=== PATIENT | male | born 1940 | race Caucasian/White ===

== ENCOUNTER 2017-01-26 19:38 | Inpatient (IN) | payer MEDICARE ==
[~2017-01-26] VITALS: Ht 177.8 cm; Wt 76.5 kg
[2017-01-26 19:44] VITALS: BP 179/79; PULSE 71; RESP 16; TEMP 97.8; O2SAT 16; O2SAT 96
[2017-01-26] MEDS ORDERED: TETANUS/DIPHTHERIA TOXOID ADULT 0.5 ML VIAL IM ONE (20:15)
[2017-01-26] MEDS ORDERED: LIDOCAINE HCL 1% PF 30 ML VIAL INFIL ONE (20:15)
[2017-01-26] MEDS ORDERED: ATEN50TA PO (20:20)
[2017-01-26] MEDS ORDERED: TAMS0.4C4 PO (20:20)
[2017-01-26] MEDS ORDERED: HYDR25TA5 PO (20:20)
[2017-01-26] MEDS ORDERED: ASPI81TA23 PO (20:20)
--- NOTE | 2017-01-26 20:20 | PD ---
HPI Chief Complaint: Skin Problem Time Seen by Provider: 20:12 Travel History International Travel<30 days: No Contact w/Intl Traveler<30days: No Traveled to known affect area: No History of Present Illness HPI 76-year-old male presents to the emergency department for complaint of medial left knee injury/pain. According the patient around 1 PM this afternoon while working in his yard he accidentally knelt down on the ground and sustained a puncture wound to the medial aspect of his left knee from a Ran planned. Patient states that he attempted to remove the thorn from his knee area on his own and thinks he removed the thorn intact but is not certain. Since that time the area has been sore. Patient went to urgent care and they became concerned that he may have a septic joint so sent him to the emergency room for further evaluation. Patient does take low-dose aspirin daily but takes no other blood thinning agents. Patient does not know his tetanus status. Patient denies other injury. Patient has not noticed any swelling, increased warmth, or redness of the knee. Patient however rates his knee pain to palpation or movement 9-10/10 in intensity. PFSH Past Medical History Hx Anticoagulant Therapy: Yes Cancer: Yes (LUNG 1993) Cardiovascular Problems: Yes Patient Takes Glucophage: No Genitourinary: Yes (BPH) Hypertension: Yes Respiratory: Yes Tetanus Vaccination: Unknown Influenza Vaccination: Yes ?: Not Past Surgical History Thoracic Surgery: Yes (BILATERAL UPPER LOBECTOMY) Social History Alcohol Use: No Tobacco Use: No Substance Use: No Allergies-Medications (Allergen,Severity, Reaction): Coded Allergies: lisinopril (Verified Allergy, Unknown, Anaphylaxis, 01/26/17) Reported Meds & Prescriptions Reported Meds & Active Scripts Active Reported Aspirin EC (Aspirin) 81 Mg Tabdr 81 Mg PO DAILY Tamsulosin (Tamsulosin HCl) 0.4 Mg Cap 0.4 Mg PO BLAS Hydrochlorothiazide 25 Mg Tab 25 Mg PO DAILY Atenolol 50 Mg Tab 50 Mg PO DAILY Review of Systems Except as stated in HPI: all other systems reviewed are Neg General / Constitutional: No: Fever, Chills Physical Exam Narrative GENERAL: Well developed well nourished male in no acute distress SKIN: Warm and dry. HEAD: Normocephalic. EYES: No scleral icterus. No injection or drainage. NECK: Supple, trachea midline. No JVD or lymphadenopathy. CARDIOVASCULAR: Regular rate and rhythm without murmurs, gallops, or rubs. RESPIRATORY: Breath sounds equal bilaterally. No accessory muscle use. GASTROINTESTINAL: Abdomen soft, non-tender, nondistended. MUSCULOSKELETAL: No cyanosis, or edema. Attention left knee medial inferior aspect subcentimeter puncture wound site tender to palpation with palpable rough potential FB BACK: Nontender without obvious deformity. No CVA tenderness. Data Data Last Documented VS Vital Signs Date Time Temp Pulse Resp B/P (MAP) Pulse Ox O2 Delivery O2 Flow Rate FiO2 01/26/17 23:14 68 14 159/64 (95) 97 Room Air 01/26/17 19:44 97.8 Orders Orders Basic Metabolic Panel (Bmp) (01/26/17 20:12) Complete Blood Count With Diff (01/26/17 20:12) Blood Culture (01/26/17 20:12) Iv Access Insert/Monitor (01/26/17 20:12) Lactic Acid (01/26/17 20:12) NPO (01/26/17 20:12) Lidocaine Pf 1% Inj (Xylocaine-Mpf 1% In (01/26/17 20:15) Knee, Complete (4vws) (01/26/17 ) Tetanus/Diphtheria Tox Adult (Tetanus/Di (01/26/17 20:15) Westergren Sedimentation Rate (01/26/17 20:25) Ketorolac Inj (Toradol Inj) (01/26/17 22:30) Morphine Inj (Morphine Inj) (01/26/17 22:30) Ondansetron Inj (Zofran Inj) (01/26/17 22:30) Prothrombin Time / Inr (Pt) (01/26/17 22:28) Act Partial Throm Time (Ptt) (01/26/17 22:28) Synovial Fl Cell Count + Diff (01/26/17 23:27) Synovial Fluid Crystals (01/26/17 23:27) Synovial Fluid Glucose (01/26/17 23:27) Synovial Fluid Total Protein (01/26/17 23:27) Fluid Culture And Gram Stain (01/26/17 23:27) Clindamycin 900 Mg Premix (Cleocin 900 M (01/26/17 23:45) Ceftazidime Inj (Fortaz Inj) (01/27/17 00:00) Labs Laboratory Tests Test 01/26/17 20:55 White Blood Count 7.0 TH/MM3 Red Blood Count 4.11 MIL/MM3 Hemoglobin 13.1 GM/DL Hematocrit 38.6 % Mean Corpuscular Volume 93.8 FL Mean Corpuscular Hemoglobin 31.8 PG Mean Corpuscular Hemoglobin Concent 33.9 % Red Cell Distribution Width 12.1 % Platelet Count 163 TH/MM3 Mean Platelet Volume 8.5 FL Neutrophils (%) (Auto) 86.7 % Lymphocytes (%) (Auto) 6.1 % Monocytes (%) (Auto) 5.6 % Eosinophils (%) (Auto) 1.2 % Basophils (%) (Auto) 0.4 % Neutrophils # (Auto) 6.1 TH/MM3 Lymphocytes # (Auto) 0.4 TH/MM3 Monocytes # (Auto) 0.4 TH/MM3 Eosinophils # (Auto) 0.1 TH/MM3 Basophils # (Auto) 0.0 TH/MM3 CBC Comment DIFF FINAL Differential Comment Erythrocyte Sedimentation Rate 15 mm/hr Prothrombin Time 11.4 SEC Prothromb Time International Ratio 1.0 RATIO Activated Partial Thromboplast Time 26.0 SEC Blood Urea Nitrogen 18 MG/DL Creatinine 1.10 MG/DL Random Glucose 100 MG/DL Calcium Level 8.5 MG/DL Sodium Level 134 MEQ/L Potassium Level 3.6 MEQ/L Chloride Level 98 MEQ/L Carbon Dioxide Level 26.1 MEQ/L Anion Gap 10 MEQ/L Estimat Glomerular Filtration Rate 65 ML/MIN Lactic Acid Level 0.9 mmol/L MDM Medical Decision Making Medical Screen Exam Complete: Yes Emergency Medical Condition: Yes Medical Record Reviewed: Yes Interpretation(s) Last Impressions Knee X-Ray 01/26/17 0000 Signed Impressions: Service Date/Time: January 20:38 - CONCLUSION: 1. Mild effusion. 2. Chondrocalcinosis. 3. No foreign body is seen. Suman Serrano MD Vital Signs Date Time Temp Pulse Resp B/P (MAP) Pulse Ox O2 Delivery O2 Flow Rate FiO2 01/26/17 19:44 97.8 71 16 179/79 (112 96 Differential Diagnosis Puncture wound, retained foreign body, effusion, septic arthritis Narrative Course IV access obtained, imaging studies ordered Review of imaging study reveals no radiopaque foreign body. Radiologist foreign body identified small effusion at medial inferior aspect of the left knee there is a puncture wound with what appears to be a rough area as a possible retained foreign body after site cleansed locally anesthetic 1% lidocaine plain injected and small incision made to see if possible removal of superficial retained thorn able to be removed. No acute bony abnormality. By imaging study there is an effusion. Physician Communication Physician Communication discussed with orthopedist Dr Lopez--admit to [facility] service for knee irrigation in the AM; discussed with Dr Mora --admit Diagnosis Primary Impression: Puncture wound of left knee Qualified Codes: S81.032A - Puncture wound without foreign body, left knee, initial encounter Additional Impressions: Effusion of knee joint, left Septic arthritis of knee, left Qualified Codes: M00.9 - Pyogenic arthritis, unspecified Admitting Information Admitting Physician Requests: Evelina Avalos MD Jan 26, 2017 20:20
--- NOTE | 2017-01-26 21:04 | RADRPT ---
EXAM DATE/TIME: 01/26/2017 20:38 [facility] COMPARISON: No previous studies available for comparison. INDICATIONS : Left knee pain; puncture from thorn. MEDICAL HISTORY : Hypertension. Carcinoma, lung. SURGICAL HISTORY : None. ENCOUNTER: Initial ACUITY: 1 day PAIN SCORE: 10/10 LOCATION: Left medial anterior knee FINDINGS: No fracture is seen. There is a mild joint effusion. There is chondrocalcinosis seen at the medial an d lateral joint compartments. Vascular calcifications are seen. No foreign body is seen. CONCLUSION: 1. Mild effusion. 2. Chondrocalcinosis. 3. No foreign body is seen. Suman Serrano MD on January 26, 2017 at 21:01 Board Certified Radiologist. This report was verified electronically.
[2017-01-26 21:11] LABS: AUTOMATED NEUTROPHIL # 6.1 TH/MM3 (1.8-7.7); BASOPHIL % 0.4 % (0.0-2.0); EOSINOPHIL # 0.1 TH/MM3 (0-0.4); EOSINOPHIL % 1.2 % (0.0-4.0); HEMATOCRIT 38.6 % (39.0-51.0); HEMO FLAGS DIFF FINAL; LYMPH % 6.1 % (9.0-44.0); LYMPHOCYTE # 0.4 TH/MM3 (1.0-4.8); MEAN CELL VOLUME 93.8 FL (80.0-100.0); MEAN CORPUSCULAR HEMOGLOBIN 31.8 PG (27.0-34.0); MEAN CORPUSCULAR HGB CONC 33.9 % (32.0-36.0); MONO % 5.6 % (0.0-8.0); NEUT % 86.7 % (16.0-70.0); PLATELET COUNT 163 TH/MM3 (150-450); RED BLOOD COUNT 4.11 MIL/MM3 (4.50-5.90); RED CELL DISTRIBUTION WIDTH 12.1 % (11.6-17.2)
[2017-01-26 21:22] LABS: POTASSIUM 3.6 MEQ/L (3.5-5.1)
[2017-01-26 21:25] LABS: BICARBONATE 26.1 MEQ/L (21.0-32.0)
[2017-01-26] MEDS ORDERED: MORPHINE SULFATE 4 MG/ML INJ IV PUSH ONE (22:30)
[2017-01-26] MEDS ORDERED: ONDANSETRON HCL 4 MG/2 ML VIAL IV PUSH ONE (22:30)
[2017-01-26] MEDS ORDERED: KETOROLAC TROMETHAMINE 30 MG/ML (IVP) VIAL IV PUSH ONE (22:30)
[2017-01-26 23:14] VITALS: BP 159/64; PULSE 68; RESP 14; O2SAT 97
[2017-01-26 23:41] LABS: PROTHROMBIN TIME - PATIENT 11.4 SEC (9.8-11.6)
[2017-01-26] MEDS ORDERED: CLINDAMYCIN 900 MG PREMIX 50 ML IV ONE (23:45)
[2017-01-27] MEDS ORDERED: cefTAZidime INJ 1,000 MG in SODIUM CHLORIDE 0.9% INJ 100 ML IV ONE ×2
[2017-01-27] MEDS ORDERED: ONDANSETRON HCL 4 MG/2 ML VIAL IVP PRN (00:15)
[2017-01-27] MEDS ORDERED: SODIUM CHLORIDE 0.9% FLUSH 10 ML FLUSH IV FLUSH PRN (00:15)
[2017-01-27] MEDS ORDERED: SENNOSIDES 8.6 MG TAB PO PRN (00:15)
[2017-01-27] MEDS ORDERED: LACTULOSE SYRUP 20 GM/30 ML CUP PO PRN (00:15)
[2017-01-27] MEDS ORDERED: ACETAMINOPHEN 325 MG TAB PO PRN (00:15)
[2017-01-27] MEDS ORDERED: ACETAMINOPHEN/HYDROcodone 325 MG/5 MG TAB PO PRN (00:15)
[2017-01-27] MEDS ORDERED: MAGNESIUM HYDROXIDE SUSP 30 ML CUP PO PRN (00:15)
[2017-01-27] MEDS ORDERED: BISACODYL 10 MG SUPP RECTAL PRN (00:15)
[2017-01-27] MEDS: SODIUM CHLOR 0.9% 1000 ML INJ 1,000 ML IV SCH ×2 (00:31→09:36)
[2017-01-27] MEDS ORDERED: MORPHINE SULFATE 2 MG/ML INJ IV PRN (00:45)
[2017-01-27 01:08] LABS: WBC, SYNOVIAL FLUID 32900 /MM3 (0-200)
[2017-01-27 02:29] VITALS: BP 135/67; PULSE 65; RESP 14; O2SAT 97
[2017-01-27 06:03] VITALS: BP 162/73; PULSE 72; RESP 18; TEMP 97.4; O2SAT 97
--- NOTE | 2017-01-27 06:52 | PD.ORT.PN ---
Subjective Subjective Remarks Fercho was working in the yard yesterday and got stuck by a thorn on his anterior left knee. Patient had significant pain and swelling yesterday. He states that the pain has mostly resolved. Swelling has improved. Objective Vitals Vital Signs Date Time Temp Pulse Resp B/P (MAP) Pulse Ox O2 Delivery O2 Flow Rate FiO2 01/27/17 06:03 97.4 72 18 162/73 (102) 97 01/27/17 02:40 01/27/17 02:29 65 14 135/67 (89) 97 Room Air 01/27/17 00:32 15 01/27/17 00:32 15 01/26/17 23:14 68 14 159/64 (95) 97 Room Air 01/26/17 19:44 97.8 71 16 179/79 (112) 96 I/O 01/26/17 01/26/17 01/26/17 01/27/17 01/27/17 01/27/17 07:00 15:00 23:00 07:00 15:00 23:00 Intake Total 384 ml Balance 384 ml Intake IV Total 384 ml Result Diagram: 01/26/17205401/26/172054 Other Results Laboratory Tests Test 01/26/17 20:55 Prothromb Time International Ratio 1.0 RATIO Prothrombin Time 11.4 SEC (9.8-11.6) Objective Remarks Patient is awake and alert. Examination of left knee reveals no warmth or erythema. There is small joint effusion. Knee range of motion is from 0-130 with minimal pain. Skin is intact except for small puncture wound from a thorn and needle aspiration. Assessment & Plan Assessment and Plan Patient's pain has mostly resolved today. Patient did have needle aspiration of knee yesterday. Resume diet today NPO after midnight--possible surgery tomorrow if cultures are positive We'll await culture results tomorrow to see if patient has infection. Gus Velasco MD Jan 27, 2017 06:52
[2017-01-27 08:00] VITALS: BP 162/71; PULSE 65; RESP 20; TEMP 98; O2SAT 96
--- NOTE | 2017-01-27 08:43 | MB ---
cc: LAMONTE SEGURA DATE OF CONSULTATION: 01/27/2017 REASON FOR CONSULTATION Left knee pain. HISTORY OF PRESENT ILLNESS Fercho is a 76-year-old male who was working out in the yard yesterday. He was kneeling down on the ground. He got a thorn from a [place] plant stuck in his anterior knee. He immediately pulled it out. He is not sure how far it went in but thinks it went in approximately 1 cm. He developed some increased pain later in the day. He presented to [facility]. Knee aspiration was performed. He has been admitted for possible septic arthritis of his knee. He is currently awake and alert. He states that his pain is significantly improved. He states that he has minimal pain in his knee at this time. He has been able to stand and ambulate. PAST MEDICAL HISTORY ILLNESSES 1. History of lung cancer. 2. BPH. SURGERIES Bilateral upper lobectomy. ALLERGIES LISINOPRIL. MEDICATIONS 1. Aspirin. 2. Tamsulosin. 3. Hydrochlorothiazide. 4. Atenolol. SOCIAL HISTORY The patient denies alcohol, tobacco or drug use. REVIEW OF SYSTEMS The patient denies headache, visual changes, neck pain, chest pain, shortness of breath, abdominal pain, nausea, vomiting, recent weight loss, numbness or tingling of extremities. He complains of mild left knee soreness. Pain is significantly improved. PHYSICAL EXAMINATION GENERAL: The patient is a well-developed, well-nourished 76-year-old male. He is awake and alert. He is thin but appears well-developed, well-nourished. He is in no acute distress. VITAL SIGNS: Temperature 97.4, pulse 72, respirations 18, blood pressure 162/73. O2 sat is 97% on room air. HEAD: The patient is normocephalic. Pupils are equal. NECK: Soft, nontender. Trachea is midline. ABDOMEN: Soft, nontender, nondistended. EXTREMITIES: Examination of bilateral upper extremities reveals no pain with shoulder, elbow or wrist motion. Skin is intact. Radial pulse is palpable. Sensation is intact in radial, ulnar and median nerve distributions bilaterally. Examination of right leg reveals no pain with hip, knee or ankle motion. Skin is intact. Dorsalis pedis pulse is palpable. Sensation is intact. Examination of left leg reveals no pain with hip or ankle motion. Sensation is intact in the left foot. Dorsalis pedis pulse is palpable. Examination of left knee reveals a small joint effusion. There is no erythema or warmth. Knee range of motion is from 0 to 130 degrees with minimal discomfort. He has multiple small puncture wounds from the aspiration as well as a small puncture wound from his initial injury. LABORATORY The patient had knee aspiration performed yesterday. The patient had 42,000 red blood cells and 32,000 white blood cells. IMPRESSION Mild left knee pain and swelling secondary to puncture wound yesterday. PLAN At this point the patient states that he is having minimal pain. He has good range of motion of the knee. I would recommend continuation of antibiotic treatment at this time. If cultures come back positive for infection then the patient will need surgical irrigation and debridement. If cultures are negative, I would not recommend surgery. The patient is in agreement with this plan. I will follow-up with the patient tomorrow after cultures are finalized. A mid-level provider in my office, nurse practitioner or PA, may see this patient on a follow-up basis and continue to implement the objective of this plan including: Starting or adjusting medications, injections of muscle, tendon, bursa or joints, cast application, orthotic or brace application, physical therapy, further radiographic studies including x-ray, MRI, CT, ultrasounds or bone scan, vascular studies, neurologic studies, or other specialist consultations, and proceeding with surgical management as appropriate. MD ROD [place]/JANE /7:27 AM /8:27 AM
[2017-01-27] MEDS: SODIUM CHLORIDE 0.9% FLUSH 10 ML FLUSH IV FLUSH SCH ×2 (09:00→21:00)
[2017-01-27] MEDS: ATENOLOL 50 MG TAB PO SCH (09:35)
[2017-01-27] MEDS: HYDROCHLOROTHIAZIDE 25 MG TAB PO SCH (09:35)
[2017-01-27] MEDS: DOCUSATE SODIUM 50 MG/SENNA 8.6 MG TAB PO SCH ×2 (09:35→21:00)
[2017-01-27] MEDS: TAMSULOSIN HCL 0.4 MG CAP PO SCH (09:36)
[2017-01-27] MEDS: CLINDAMYCIN 300 MG PREMIX 50 ML IV SCH ×2 (11:11→22:27)
[2017-01-27] MEDS: cefTAZidime INJ 1,000 MG in SODIUM CHLORIDE 0.9% INJ 100 ML IV SCH ×2 (11:11→16:47)
[2017-01-27 12:00] VITALS: BP 113/53; PULSE 54; RESP 20; TEMP 98.4; O2SAT 97
--- NOTE | 2017-01-27 12:21 | HHI.HP ---
[facility]Staff Admission Diagnosis PW left knee r/o septic arthritis Diagnoses: (1) Effusion of knee joint, left Diagnosis: Principal (2) Puncture wound of left knee Diagnosis: Principal Chief Complaint: Skin injury to left knee Travel History International Travel<30 Days: No Contact w/Intl Traveler <30 Da: No Traveled to Known Affected Are: No History of Present Illness Written by Alexey Duarte, acting as scribe for Dr. Arreola on 01/27/17 at 12:21. 76-year-old with a past medical history of hypertension and BPH who was out working on his yard gardening yesterday when he suffered an injury to his left knee after he kneeled down and a branch punctured his skin located on his knee. The knee then became swollen, red, and he had reduced range of motion. He came to the emergency department for further evaluation. He denies any fever, chills, nausea, vomiting, chest pain, or shortness of breath. He is resting in bed and states that he feels his knee is much better, reports swelling and redness have improved very much sine knee aspiration was done yesterday while in the ED. He denies pain or any acute concerns at this time. Review of Systems Constitutional: DENIES: Fever, Chills Respiratory: DENIES: Cough, Shortness of breath Cardiovascular: DENIES: Chest pain Gastrointestinal: DENIES: Abdominal pain, Diarrhea, Nausea, Vomiting Genitourinary: DENIES: Urgency, Hematuria, Dysuria, Nocturia Musculoskeletal: DENIES: Joint pain Except as stated in HPI: all other systems reviewed are Neg Past Family Social History Past Medical History HTN BPH Past Surgical History Tonsillectomy Reported Medications Reported Meds & Active Scripts Active Reported Aspirin EC (Aspirin) 81 Mg Tabdr 81 Mg PO DAILY Tamsulosin (Tamsulosin HCl) 0.4 Mg Cap 0.4 Mg PO BLAS Hydrochlorothiazide 25 Mg Tab 25 Mg PO DAILY Atenolol 50 Mg Tab 50 Mg PO DAILY Allergies: Coded Allergies: lisinopril (Verified Allergy, Unknown, Anaphylaxis, 01/26/17) Family History Father: [place] at 62 Mother: Cancer "all over" Sister: Cancer, unspecified Social History Tobacco: Quit 22 years ago, 40 year smoker X 20 cigarettes a day Alcohol: Quit drinking 3 years ago, repots being a "heavy drinker" Illicit drug use: Denies Physical Exam Vital Signs Vital Signs Date Time Temp Pulse Resp B/P (MAP) Pulse Ox O2 Delivery O2 Flow Rate FiO2 01/27/17 08:00 98.0 65 20 162/71 (101) 96 01/27/17 06:03 97.4 72 18 162/73 (102) 97 01/27/17 02:40 01/27/17 02:29 65 14 135/67 (89) 97 Room Air 01/27/17 00:32 15 01/27/17 00:32 15 01/26/17 23:14 68 14 159/64 (95) 97 Room Air 01/26/17 19:44 97.8 71 16 179/79 (112) 96 Physical Exam GENERAL: This is a well-nourished, well-developed patient, in no apparent distress lying in bed asleep, easily abusable. SKIN: No rashes, ecchymoses. Cool and dry. Puncture site visible on left knee medial, lower aspect. Minimal amount of redness noted on surrounding puncture site from injury. No significant edema appreciated, patient with full range of motion. HEAD: Atraumatic. Normocephalic. No temporal or scalp tenderness. EYES: Pupils equal round and reactive. Extraocular motions intact. No scleral icterus. No injection or drainage. ENT: Nose without bleeding, purulent drainage or septal hematoma. Throat without erythema, tonsillar hypertrophy or exudate. Uvula midline. Airway patent. NECK: Trachea midline. Supple, nontender, no meningeal signs. CARDIOVASCULAR: Regular rate and rhythm without murmurs, gallops, or rubs. RESPIRATORY: Clear to auscultation. Breath sounds equal bilaterally. No wheezes , rales, or rhonchi. GASTROINTESTINAL: Abdomen soft, non-tender, nondistended. No hepato-splenomegaly , or palpable masses. No guarding. MUSCULOSKELETAL: Extremities without clubbing, cyanosis, or edema. No joint tenderness, effusion, or edema noted. Minimal redness to left knee. NEUROLOGICAL: Awake and alert. Motor and sensory grossly within normal limits. Five out of 5 muscle strength in all muscle groups. Normal speech. Laboratory Laboratory Tests Test 01/26/17 20:55 01/27/17 00:00 White Blood Count 7.0 Red Blood Count 4.11 Hemoglobin 13.1 Hematocrit 38.6 Mean Corpuscular Volume 93.8 Mean Corpuscular Hemoglobin 31.8 Mean Corpuscular Hemoglobin Concent 33.9 Red Cell Distribution Width 12.1 Platelet Count 163 Mean Platelet Volume 8.5 Neutrophils (%) (Auto) 86.7 Lymphocytes (%) (Auto) 6.1 Monocytes (%) (Auto) 5.6 Eosinophils (%) (Auto) 1.2 Basophils (%) (Auto) 0.4 Neutrophils # (Auto) 6.1 Lymphocytes # (Auto) 0.4 Monocytes # (Auto) 0.4 Eosinophils # (Auto) 0.1 Basophils # (Auto) 0.0 CBC Comment DIFF FINAL Differential Comment Erythrocyte Sedimentation Rate 15 Prothrombin Time 11.4 Prothromb Time International Ratio 1.0 Activated Partial Thromboplast Time 26.0 Blood Urea Nitrogen 18 Creatinine 1.10 Random Glucose 100 Calcium Level 8.5 Sodium Level 134 Potassium Level 3.6 Chloride Level 98 Carbon Dioxide Level 26.1 Anion Gap 10 Estimat Glomerular Filtration Rate 65 Lactic Acid Level 0.9 Synovial Fluid Color RED Synovial Fluid Appearance BLOODY Synovial Fluid WBC 34769 Synovial Fluid RBC 26010 Synovial Fluid Neutrophils 98 Synovial Fluid Lymphocytes 2 Synovial Fluid Crystals NONE Date/Time Source Procedure Growth Status 01/26/17 20:55 Blood Peripheral Aerobic Blood Culture - Preliminary NO GROWTH IN 1 DAY Resulted 01/26/17 20:55 Blood Peripheral Anaerobic Blood Culture - Preliminary NO GROWTH IN 1 DAY Resulted 01/27/17 00:00 Fluid Synovial Fluid Gram Stain - Final Resulted 01/27/17 00:00 Fluid Synovial Fluid Body Fluid Culture Pending Resulted Result Diagram: 01/26/17205401/26/172054 Imaging Last Impressions Knee X-Ray 01/26/17 0000 Signed Impressions: Service Date/Time: January 20:38 - CONCLUSION: 1. Mild effusion. 2. Chondrocalcinosis. 3. No foreign body is seen. MD Will Pena VTE Risk Assessment Caprini VTE Risk Assessment: Mod/High Risk (score >= 2) Caprini Risk Assessment Model Point Value = 1 Point Value = 2 Point Value = 3 Point Value = 5 Age 41-60 Minor surgery BMI > 25 kg/m2 Swollen legs Varicose veins or History of unexplained or recurrent spontaneous Oral contraceptives or hormone replacement Sepsis (< 1 month) Serious lung disease, including pneumonia (< 1 month) Abnormal pulmonary function Acute myocardial infarction Congestive heart failure (< 1 month) History of inflammatory bowel disease Medical patient at bed rest Age 61-74 Arthroscopic surgery Major open surgery (> 45 min) Laparoscopic surgery (> 45 min) Malignancy Confined to bed (> 72 hours) Immobilizing plaster cast Central venous access Age >= 75 History of VTE Family history of VTE Factor V Leiden Prothrombin [id number] Lupus anticoagulant Anticardiolipin antibodies Elevated serum homocysteine Heparin-induced thrombocytopenia Other congenital or acquired thrombophilia Stroke (< 1 month) Elective arthroplasty Hip, pelvis, or leg fracture Acute spinal cord injury (< 1 month) Prophylaxis Regimen Total Risk Factor Score Risk Level Prophylaxis Regimen 0-1 Low Early ambulation 2 Moderate Order ONE of the following: *Sequential Compression Device (SCD) *Heparin 5000 units SQ BID 3-4 Higher Order ONE of the following medications: *Heparin 5000 units SQ TID *Enoxaparin/Lovenox 40 mg SQ daily (WT < 150 kg, CrCl > 30 mL/min) *Enoxaparin/Lovenox 30 mg SQ daily (WT < 150 kg, CrCl > 10-29 mL/min) *Enoxaparin/Lovenox 30 mg SQ BID (WT < 150 kg, CrCl > 30 mL/min) AND/OR *Sequential Compression Device (SCD) 5 or more Highest Order ONE of the following medications: *Heparin 5000 units SQ TID (Preferred with Epidurals) *Enoxaparin/Lovenox 40 mg SQ daily (WT < 150 kg, CrCl > 30 mL/min) *Enoxaparin/Lovenox 30 mg SQ daily (WT < 150 kg, CrCl > 10-29 mL/min) *Enoxaparin/Lovenox 30 mg SQ BID (WT < 150 kg, CrCl > 30 mL/min) AND *Sequential Compression Device (SCD) Assessment and Plan Problem List: (1) Effusion of knee joint, left ICD Code: M25.462 - Effusion, left knee Status: Acute (2) Puncture wound of left knee ICD Code: S81.032A - Puncture wound without foreign body, left knee, initial encounter Status: Acute Assessment and Plan 76-year-old with a past medical history of hypertension and BPH who was out working on his yard gardening yesterday when he suffered an injury to his left knee after he kneeled down and a branch punctured his skin located on his knee. Puncture wound of left knee, with joint effusion - Patient had x-ray done in ED which did not show any foreign body, mild effusion and chondrocalcinosis. - Knee aspiration done and cultures sent. Blood cultures with no growth after one day. - On IV Clindamycin and Ceftazidime. - Patient received Tetanus and Diptheria IM in ED - Orthopedics consulted, recommended continuing IV antibiotics. - Follow cultures if positive patient may need surgical irrigation and debridement. NPO after midnight in care he needs surgical intervention. - Consulted ID, recommendations appreciated. - Pain control [place] and IV morphine for breakthrough pain as needed. HTN, chronic - Home medications resumed - Monitor trends. BPH, chronic - Resumed home Flomax - No complaints of urinary difficulties. VTE - Early ambulation This note was transcribed by ED Jacinto . I, Dr. Toña Arreola personally performed the history, physical exam, and medical decision making; and confirmed the accuracy of the information in the transcribed note. Authenticated by Dr. Toña Arreola on 01/27/17 at 12:21. Physician Certification 2 Midnight Certification Type: Admission for Inpatient Services Order for Inpatient Services The services are ordered in accordance with Medicare regulations or non- Medicare payer requirements, as applicable. In the case of services not specified as inpatient-only, they are appropriately provided as inpatient services in accordance with the 2-midnight benchmark. Estimated LOS (days): 3 days is the estimated time the patient will need to remain in the hospital, assuming treatment plan goals are met and no additional complications. Post-Hospital Plan: Home Problem Qualifiers (1) Puncture wound of left knee: Qualified Codes: S81.032A - Puncture wound without foreign body, left knee, initial encounter Alexey Duarte Jan 27, 2017 12:21 Toña Arreola MD Jan 27, 2017 13:14
[2017-01-27 16:00] VITALS: BP 117/56; PULSE 63; RESP 16; TEMP 98.3; O2SAT 96
--- NOTE | 2017-01-27 17:06 | PD.ID.CON ---
History of Present Illness Service ID Consult Requested By Dr Arreola Reason for Consult suspected joint infection following a puncture wound to the knee Primary Care Physician Non-Staff Diagnoses: History of Present Illness 76-year-old male sustained a punture injury to his left knee with a sayda/ brunch while gardening one day prior to admission He developped swelling, redness, pain and decreased range of motion. Pt presented afebrile with nl WBC Knee aspiration was done yesterday while in the ED, 36 K of WBC with 98% neutrophil predominance.Fluid was grossly bloody Gstain w/o organisms Xray w/o foeign body Pt was started on empiric abx: clindamycin, ceftazidime Pt states dramatic improvement of swelling redness and pain since admsission Review of Systems Except as stated in HPI: all other systems reviewed are Neg Past Family Social History Allergies: Coded Allergies: lisinopril (Verified Allergy, Unknown, Anaphylaxis, 01/26/17) Past Medical History HTN BPH Past Surgical History Tonsillectomy Active Ordered Medications Medications where reviewed in EMR Antibiotics Include: clindamycin, ceftazidime Family History reviewed: Father: [place] at 62 Mother: Cancer "all over" Sister: Cancer, unspecified Social History Tobacco: Quit 22 years ago, 40 year smoker X 20 cigarettes a day Alcohol: Quit drinking 3 years ago, repots being a "heavy drinker" Illicit drug use: Denies Physical Exam Vital Signs Vital Signs Date Time Temp Pulse Resp B/P (MAP) Pulse Ox O2 Delivery O2 Flow Rate FiO2 01/27/17 12:00 98.4 54 20 113/53 (73) 97 01/27/17 08:00 98.0 65 20 162/71 (101) 96 01/27/17 06:03 97.4 72 18 162/73 (102) 97 01/27/17 02:40 01/27/17 02:29 65 14 135/67 (89) 97 Room Air 01/27/17 00:32 15 01/27/17 00:32 15 01/26/17 23:14 68 14 159/64 (95) 97 Room Air 01/26/17 19:44 97.8 71 16 179/79 (112) 96 Physical Exam CONSTITUTIONAL/GENERAL: This is an adequately nourished patient, in no apparent distress. TUBES/LINES/DRAINS: SKIN: No jaundice, rashes, or lesions. . Skin temperature appropriate. Not diaphoretic. HEAD: Atraumatic. Normocephalic. EYES: Pupils equal and round and reactive. Extraocular motions intact. No scleral icterus. No injection or drainage. Fundi not examined. ENT: Hearing grossly normal. Nose without bleeding or purulent drainage. Oral mucosae without visible erythema, exudates, masses, or lesions. NECK: Trachea midline. CARDIOVASCULAR: Regular rate and rhythm without murmurs, gallops, or rubs. No JVD. Peripheral pulses symmetric. RESPIRATORY/CHEST: Symmetric, unlabored respirations. Clear to auscultation. Breath sounds equal bilaterally. No wheezes, rales, or rhonchi. GASTROINTESTINAL: Abdomen soft, non-tender, nondistended. No hepato-splenomegaly , or palpable masses. No guarding. Bowel sounds present. GENITOURINARY: Without palpable bladder distension. MUSCULOSKELETAL: Extremities without clubbing, cyanosis, or edema. No calf tenderness. No mottling or clubbing. Very mild erythematous aera over medial aspect of the L knee notes _ tender to palpation LYMPHATICS: No palpable cervical or supraclavicular adenopathy. NEUROLOGICAL: Awake and alert. Motor and sensory grossly within normal limits. Follows commands. Clear speech. Moves all extremities. PSYCHIATRIC: No obvious anxiety/depression. no apparent hallucinations or other psychotic thought process. Laboratory Laboratory Tests Test 01/26/17 20:55 01/27/17 00:00 White Blood Count 7.0 Red Blood Count 4.11 Hemoglobin 13.1 Hematocrit 38.6 Mean Corpuscular Volume 93.8 Mean Corpuscular Hemoglobin 31.8 Mean Corpuscular Hemoglobin Concent 33.9 Red Cell Distribution Width 12.1 Platelet Count 163 Mean Platelet Volume 8.5 Neutrophils (%) (Auto) 86.7 Lymphocytes (%) (Auto) 6.1 Monocytes (%) (Auto) 5.6 Eosinophils (%) (Auto) 1.2 Basophils (%) (Auto) 0.4 Neutrophils # (Auto) 6.1 Lymphocytes # (Auto) 0.4 Monocytes # (Auto) 0.4 Eosinophils # (Auto) 0.1 Basophils # (Auto) 0.0 CBC Comment DIFF FINAL Differential Comment Erythrocyte Sedimentation Rate 15 Prothrombin Time 11.4 Prothromb Time International Ratio 1.0 Activated Partial Thromboplast Time 26.0 Blood Urea Nitrogen 18 Creatinine 1.10 Random Glucose 100 Calcium Level 8.5 Sodium Level 134 Potassium Level 3.6 Chloride Level 98 Carbon Dioxide Level 26.1 Anion Gap 10 Estimat Glomerular Filtration Rate 65 Lactic Acid Level 0.9 Synovial Fluid Color RED Synovial Fluid Appearance BLOODY Synovial Fluid WBC 66072 Synovial Fluid RBC 37405 Synovial Fluid Neutrophils 98 Synovial Fluid Lymphocytes 2 Synovial Fluid Crystals NONE Date/Time Source Procedure Growth Status 01/26/17 20:55 Blood Peripheral Aerobic Blood Culture - Preliminary NO GROWTH IN 1 DAY Resulted 01/26/17 20:55 Blood Peripheral Anaerobic Blood Culture - Preliminary NO GROWTH IN 1 DAY Resulted 01/27/17 00:00 Fluid Synovial Fluid Gram Stain - Final Resulted 01/27/17 00:00 Fluid Synovial Fluid Body Fluid Culture Pending Resulted Result Diagram: 01/26/17205401/26/172054 Imaging Last Impressions Knee X-Ray 01/26/17 0000 Signed Impressions: Service Date/Time: January 20:38 - CONCLUSION: 1. Mild effusion. 2. Chondrocalcinosis. 3. No foreign body is seen. Suman Serrano MD Assessment and Plan Assessment and Plan ? L knee infectio following puncture wound with a thorn Synovial fluid suspicius for septic arthritis cont current abx monito clx AFB, fungal clx added Emely Haynes MD Jan 27, 2017 17:06
[2017-01-27 21:46] VITALS: BP 143/64; PULSE 62; RESP 20; TEMP 99.5; O2SAT 96
[2017-01-28 00:29] VITALS: BP 146/66; PULSE 64; RESP 18; TEMP 98.1; O2SAT 95
[2017-01-28] MEDS: cefTAZidime INJ 1,000 MG in SODIUM CHLORIDE 0.9% INJ 100 ML IV SCH ×3 (03:41→17:50)
[2017-01-28] MEDS: CLINDAMYCIN 300 MG PREMIX 50 ML IV SCH ×3 (03:42→21:05)
[2017-01-28] MEDS ORDERED: POVIDONE IODINE 5% (ANTISEPSIS KIT) 4 APPLICATIONS EACH NARE PRN (04:45)
[2017-01-28] MEDS ORDERED: CHLORHEXIDINE GLUCONATE 2 % 1 PACK (2 CLOTHS) TOPICAL PRN (04:45)
[2017-01-28] MEDS ORDERED: LACTATED RINGER'S 1000 ML IV PRN (04:45)
[2017-01-28 05:32] VITALS: BP 179/72; PULSE 53; RESP 18; TEMP 98.1; O2SAT 96
[2017-01-28 07:26] LABS: AUTOMATED NEUTROPHIL # 3.2 TH/MM3 (1.8-7.7); BASOPHIL % 0.5 % (0.0-2.0); EOSINOPHIL # 0.1 TH/MM3 (0-0.4); EOSINOPHIL % 2.1 % (0.0-4.0); HEMATOCRIT 34.9 % (39.0-51.0); HEMO FLAGS DIFF FINAL; LYMPH % 16.6 % (9.0-44.0); LYMPHOCYTE # 0.8 TH/MM3 (1.0-4.8); MEAN CELL VOLUME 95.3 FL (80.0-100.0); MEAN CORPUSCULAR HGB CONC 34.6 % (32.0-36.0); MONO % 11.3 % (0.0-8.0); NEUT % 69.5 % (16.0-70.0); PLATELET COUNT 131 TH/MM3 (150-450); RED BLOOD COUNT 3.66 MIL/MM3 (4.50-5.90); RED CELL DISTRIBUTION WIDTH 12.9 % (11.6-17.2); WHITE BLOOD COUNT 4.6 TH/MM3 (4.0-11.0)
[2017-01-28 08:01] LABS: ALT (GPT) 18 U/L (12-78); ANION GAP 8 MEQ/L (5-15); AST (GOT) 15 U/L (15-37); BICARBONATE 27.2 MEQ/L (21.0-32.0); BLOOD UREA NITROGEN 14 MG/DL (7-18); CHLORIDE 100 MEQ/L (98-107); GLOMERULAR FILTRATION RATE 79 ML/MIN (>89); POTASSIUM 3.4 MEQ/L (3.5-5.1); SODIUM (NA) 135 MEQ/L (136-145)
[2017-01-28 08:03] LABS: ALKALINE PHOSPHATASE 59 U/L (45-117); TOTAL BILIRUBIN ADULT 1.2 MG/DL (0.2-1.0)
[2017-01-28 08:33] VITALS: BP 167/70; PULSE 69; RESP 20; TEMP 97.9; O2SAT 96
[2017-01-28] MEDS: HYDROCHLOROTHIAZIDE 25 MG TAB PO SCH (08:45)
[2017-01-28] MEDS: SODIUM CHLORIDE 0.9% FLUSH 10 ML FLUSH IV FLUSH SCH ×2 (08:45→21:05)
[2017-01-28] MEDS: ATENOLOL 50 MG TAB PO SCH (08:45)
[2017-01-28] MEDS: TAMSULOSIN HCL 0.4 MG CAP PO SCH (08:45)
[2017-01-28] MEDS: DOCUSATE SODIUM 50 MG/SENNA 8.6 MG TAB PO SCH ×2 (08:45→21:00)
--- NOTE | 2017-01-28 09:07 | HHI.PR ---
Subjective Remarks Feels tired today. No much pain in his left knee. Swelling and erythema improved significantly. Complaints of headaches. No fever. Reports chills. Family at bedside Objective Vitals Vital Signs Date Time Temp Pulse Resp B/P (MAP) Pulse Ox O2 Delivery O2 Flow Rate FiO2 01/28/17 08:33 97.9 69 20 167/70 (102) 96 01/28/17 05:32 98.1 53 18 179/72 (107) 96 01/28/17 00:29 98.1 64 18 146/66 (92) 95 01/27/17 21:46 99.5 62 20 143/64 (90) 96 01/27/17 16:00 98.3 63 16 117/56 (76) 96 01/27/17 12:00 98.4 54 20 113/53 (73) 97 I/O 01/27/17 01/27/17 01/27/17 01/28/17 01/28/17 01/28/17 07:00 15:00 23:00 07:00 15:00 23:00 Intake Total 384 ml 50 ml 150 ml Balance 384 ml 50 ml 150 ml Intake IV Total 384 ml 50 ml 150 ml Result Diagram: 01/28/17 0613 01/28/17 0613 Imaging Last Impressions Knee X-Ray 01/26/17 0000 Signed Impressions: Service Date/Time: January 20:38 - CONCLUSION: 1. Mild effusion. 2. Chondrocalcinosis. 3. No foreign body is seen. Suman Serrano MD Objective Remarks GENERAL: This is a well-nourished, well-developed patient, in no apparent distress lying in bed asleep, easily abusable. SKIN: No rashes, ecchymoses. Cool and dry. Puncture site visible on left knee medial, lower aspect. Minimal amount of redness noted on surrounding puncture site from injury. No significant edema appreciated, patient with full range of motion. CARDIOVASCULAR: Regular rate and rhythm without murmurs, gallops, or rubs. RESPIRATORY: Clear to auscultation. Breath sounds equal bilaterally. No wheezes , rales, or rhonchi. GASTROINTESTINAL: Abdomen soft, non-tender, nondistended. No hepato-splenomegaly , or palpable masses. No guarding. MUSCULOSKELETAL: Extremities without clubbing, cyanosis, or edema. No joint tenderness, effusion, or edema noted. Minimal redness to left knee. NEUROLOGICAL: Awake and alert. Motor and sensory grossly within normal limits. Five out of 5 muscle strength in all muscle groups. Normal speech. A/P Problem List: (1) Effusion of knee joint, left ICD Code: M25.462 - Effusion, left knee Status: Acute (2) Puncture wound of left knee ICD Code: S81.032A - Puncture wound without foreign body, left knee, initial encounter Status: Acute Assessment and Plan 76-year-old with a past medical history of hypertension and BPH who was out working on his yard gardening yesterday when he suffered an injury to his left knee after he kneeled down and a branch punctured his skin located on his knee. Puncture wound of left knee, with joint effusion Patient had x-ray done in ED which did not show any foreign body, mild effusion and chondrocalcinosis. Knee aspiration done and cultures sent. Blood cultures with no growth after one day. On IV Clindamycin and Ceftazidime. Patient received Tetanus and Diptheria IM in ED Orthopedics consulted, recommended continuing IV antibiotics. Follow cultures if positive patient may need surgical irrigation and debridement. Ortho ff. Blood cultures positive. ID specialist ff. Will repeat blood cultures 01/28/17 Consulted ID, recommendations appreciated. Pain control [place] and IV morphine for breakthrough pain as needed. Monitor closely VS. HTN, chronic Home medications resumed Monitor trends. BPH, chronic Resumed home Flomax No complaints of urinary difficulties. VTE ppx - Early ambulation Discussed with the patient, nurse, family at bedside Problem Qualifiers (1) Puncture wound of left knee: Qualified Codes: S81.032A - Puncture wound without foreign body, left knee, initial encounter Toña Arreola MD Jan 28, 2017 09:07
[2017-01-28 11:56] VITALS: BP 165/72; PULSE 56; RESP 20; TEMP 97.9; O2SAT 96
[2017-01-28] MEDS ORDERED: ACETAMINOPHEN 325 MG TAB PO ONE (12:15)
[2017-01-28] MEDS ORDERED: ACETAMINOPHEN 325 MG TAB PO PRN (12:15)
[2017-01-28] MEDS ORDERED: POTASSIUM CHLORIDE 10 MEQ CONTROLLED RELEASE TAB PO ONE (14:15)
--- NOTE | 2017-01-28 15:48 | EKG ---
Date Performed: 01/28/2017 Time Performed: 06:04:42 PTAGE: 76 years EKG: Sinus rhythm rSr'(V1) - probable normal variant Normal ECG NO PREVIOUS TRACING DOCTOR: Anderson Cruz Interpretating Date/Time 01/28/2017 15:46:04
[2017-01-28 16:33] VITALS: BP 113/54; PULSE 48; RESP 20; TEMP 97.9; O2SAT 96
[2017-01-28 20:00] VITALS: BP 139/60; PULSE 56; RESP 18; TEMP 97.7; O2SAT 97
[2017-01-29] VITALS: BP 136/68; PULSE 58; RESP 18; TEMP 97.5; O2SAT 97
[2017-01-29] MEDS: cefTAZidime INJ 1,000 MG in SODIUM CHLORIDE 0.9% INJ 100 ML IV SCH ×2 (03:23→11:14)
[2017-01-29] MEDS: CLINDAMYCIN 300 MG PREMIX 50 ML IV SCH ×2 (03:23→12:04)
[2017-01-29 04:00] VITALS: BP 180/79; PULSE 65; RESP 18; TEMP 97.5; O2SAT 97
--- NOTE | 2017-01-29 07:17 | PD.ORT.PN ---
Subjective Subjective Remarks Fercho was working in the yard 4 days ago and got stuck by a thorn on his anterior left knee. His pain and swelling has significantly improved. He states that the pain has mostly resolved. He is able to stand and ambulate with minimal pain Objective Vitals Vital Signs Date Time Temp Pulse Resp B/P (MAP) Pulse Ox O2 Delivery O2 Flow Rate FiO2 01/29/17 04:00 97.5 65 18 180/79 (112) 97 01/29/17 00:00 97.5 58 18 136/68 (90) 97 01/28/17 20:00 97.7 56 18 139/60 (86) 97 01/28/17 16:33 97.9 48 20 113/54 (73) 96 01/28/17 11:56 97.9 56 20 165/72 (103) 96 01/28/17 08:33 97.9 69 20 167/70 (102) 96 I/O 01/28/17 01/28/17 01/28/17 01/29/17 01/29/17 01/29/17 07:00 15:00 23:00 07:00 15:00 23:00 Intake Total 150 ml Balance 150 ml Intake IV Total 150 ml Result Diagram: 01/28/1761201/28/17612 Objective Remarks Patient is awake and alert. Examination of left knee reveals no warmth or erythema. There is minimal joint effusion. Knee range of motion is from 0-130 with minimal pain. No warmth or erythema Patient ambulating without difficulty Assessment & Plan Assessment and Plan Patient's pain has mostly resolved. Patient did have needle aspiration of knee yesterday--cultures no growth to date. Ortho clear for discharge home Gus Velasco MD Jan 29, 2017 07:17
[2017-01-29 08:00] VITALS: BP 163/86; PULSE 75; RESP 16; TEMP 97.2; O2SAT 97
[2017-01-29] MEDS: SODIUM CHLORIDE 0.9% FLUSH 10 ML FLUSH IV FLUSH SCH (08:18)
[2017-01-29] MEDS: ATENOLOL 50 MG TAB PO SCH (08:18)
[2017-01-29] MEDS: TAMSULOSIN HCL 0.4 MG CAP PO SCH (08:18)
[2017-01-29] MEDS: DOCUSATE SODIUM 50 MG/SENNA 8.6 MG TAB PO SCH (08:19)
[2017-01-29] MEDS: HYDROCHLOROTHIAZIDE 25 MG TAB PO SCH (08:19)
--- NOTE | 2017-01-29 09:58 | HHI.PR ---
Subjective Remarks In bed, he is walking with a cane. Family at bedside. Denies any pain he is not taking any normal for his knee. There is no erythema or edema. Denies fever or chills. No chest pain, shortness of breath. No diarrhea or constipation no nausea. Objective Vitals Vital Signs Date Time Temp Pulse Resp B/P (MAP) Pulse Ox O2 Delivery O2 Flow Rate FiO2 01/29/17 08:00 97.2 75 16 163/86 (111) 97 01/29/17 04:00 97.5 65 18 180/79 (112) 97 01/29/17 00:00 97.5 58 18 136/68 (90) 97 01/28/17 20:00 97.7 56 18 139/60 (86) 97 01/28/17 16:33 97.9 48 20 113/54 (73) 96 01/28/17 11:56 97.9 56 20 165/72 (103) 96 I/O 01/28/17 01/28/17 01/28/17 01/29/17 01/29/17 01/29/17 07:00 15:00 23:00 07:00 15:00 23:00 Intake Total 150 ml Balance 150 ml Intake IV Total 150 ml # Voids 3 Result Diagram: 01/28/17 0613 01/28/17 0613 Imaging Last Impressions Knee X-Ray 01/26/17 0000 Signed Impressions: Service Date/Time: January 20:38 - CONCLUSION: 1. Mild effusion. 2. Chondrocalcinosis. 3. No foreign body is seen. Suman Serrano MD Objective Remarks GENERAL: This is a well-nourished, well-developed patient, in no apparent distress lying in bed asleep, easily abusable. SKIN: No rashes, ecchymoses. Cool and dry. Puncture site visible on left knee medial, lower aspect. Minimal amount of redness noted on surrounding puncture site from injury. No significant edema appreciated, patient with full range of motion. CARDIOVASCULAR: Regular rate and rhythm without murmurs, gallops, or rubs. RESPIRATORY: Clear to auscultation. Breath sounds equal bilaterally. No wheezes , rales, or rhonchi. GASTROINTESTINAL: Abdomen soft, non-tender, nondistended. No hepato-splenomegaly , or palpable masses. No guarding. MUSCULOSKELETAL: Extremities without clubbing, cyanosis, or edema. No joint tenderness, effusion, or edema noted. Minimal redness to left knee. NEUROLOGICAL: Awake and alert. Motor and sensory grossly within normal limits. Five out of 5 muscle strength in all muscle groups. Normal speech. A/P Problem List: (1) Effusion of knee joint, left ICD Code: M25.462 - Effusion, left knee Status: Acute (2) Puncture wound of left knee ICD Code: S81.032A - Puncture wound without foreign body, left knee, initial encounter Status: Acute Assessment and Plan 76-year-old with a past medical history of hypertension and BPH who was out working on his yard gardening yesterday when he suffered an injury to his left knee after he kneeled down and a branch punctured his skin located on his knee. Puncture wound of left knee, with joint effusion Patient had x-ray done in ED which did not show any foreign body, mild effusion and chondrocalcinosis. Knee aspiration done and cultures sent. Blood cultures with no growth after one day. On IV Clindamycin and Ceftazidime. Patient received Tetanus and Diphtheria IM in ED Orthopedics consulted, cleared patient for DC Follow cultures if positive patient may need surgical irrigation and debridement. Ortho ff. Blood cultures positive. ID specialist ff. Will repeat blood cultures 01/28/17 so far NTD Consulted ID, recommendations appreciated. Pain control [place] and IV morphine for breakthrough pain as needed. Monitor closely VS. HTN, chronic Home medications resumed Monitor trends. BPH, chronic Resumed home Flomax No complaints of urinary difficulties. VTE ppx - Early ambulation Discussed with the patient, nurse, family at bedside DC plan: cleared by ortho for DC. Patient improving, awaiting final recommendations from ID specialist and clearance for DC. Discussed with Dr Nur will give recommendations in her note Problem Qualifiers (1) Puncture wound of left knee: Qualified Codes: S81.032A - Puncture wound without foreign body, left knee, initial encounter Toña Arreola MD Jan 29, 2017 09:58
--- NOTE | 2017-01-29 10:02 | HHI.DS ---
Discharge Summary Admission Date Jan 27, 2017 at 00:15 Discharge Date: Jan 29, 2017 Admitting Diagnosis PW left knee r/o septic arthritis (1) Effusion of knee joint, left ICD Code: M25.462 - Effusion, left knee Status: Acute (2) Puncture wound of left knee ICD Code: S81.032A - Puncture wound without foreign body, left knee, initial encounter Status: Acute Procedures Left Knee aspiration Brief History - From Admission Written by Alexey Duarte, acting as scribe for Dr. Arreola on 01/27/17 at 12:21. 76-year-old with a past medical history of hypertension and BPH who was out working on his yard gardening yesterday when he suffered an injury to his left knee after he kneeled down and a branch punctured his skin located on his knee. The knee then became swollen, red, and he had reduced range of motion. He came to the emergency department for further evaluation. He denies any fever, chills, nausea, vomiting, chest pain, or shortness of breath. He is resting in bed and states that he feels his knee is much better, reports swelling and redness have improved very much sine knee aspiration was done yesterday while in the ED. He denies pain or any acute concerns at this time. CBC/BMP: 01/28/17 0613 01/28/17 0613 Significant Findings Laboratory Tests Test 01/26/17 20:55 01/27/17 00:00 01/28/17 06:13 Red Blood Count 4.11 MIL/MM3 (4.50-5.90) 3.66 MIL/MM3 (4.50-5.90) Hematocrit 38.6 % (39.0-51.0) 34.9 % (39.0-51.0) Neutrophils (%) (Auto) 86.7 % (16.0-70.0) Lymphocytes (%) (Auto) 6.1 % (9.0-44.0) Lymphocytes # (Auto) 0.4 TH/MM3 (1.0-4.8) 0.8 TH/MM3 (1.0-4.8) Sodium Level 134 MEQ/L (136-145) 135 MEQ/L (136-145) Estimat Glomerular Filtration Rate 65 ML/MIN (>89) 79 ML/MIN (>89) Synovial Fluid Color RED (STRAW) Synovial Fluid Appearance BLOODY (CLEAR) Synovial Fluid WBC 52597 /MM3 (0-200) Synovial Fluid RBC 69579 /MM3 (0-0) Synovial Fluid Neutrophils 98 % (0-25) Hemoglobin 12.1 GM/DL (13.0-17.0) Platelet Count 131 TH/MM3 (150-450) Monocytes (%) (Auto) 11.3 % (0.0-8.0) Total Protein 5.7 GM/DL (6.4-8.2) Albumin 2.7 GM/DL (3.4-5.0) Calcium Level 8.1 MG/DL (8.5-10.1) Total Bilirubin 1.2 MG/DL (0.2-1.0) Potassium Level 3.4 MEQ/L (3.5-5.1) Imaging Last Impressions Knee X-Ray 01/26/17 0000 Signed Impressions: Service Date/Time: January 20:38 - CONCLUSION: 1. Mild effusion. 2. Chondrocalcinosis. 3. No foreign body is seen. Suman Serrano MD PE at Discharge GENERAL: This is a well-nourished, well-developed patient, in no apparent distress lying in bed asleep, easily abusable. SKIN: No rashes, ecchymoses. Cool and dry. Puncture site visible on left knee medial, lower aspect. Minimal amount of redness noted on surrounding puncture site from injury. No significant edema appreciated, patient with full range of motion. CARDIOVASCULAR: Regular rate and rhythm without murmurs, gallops, or rubs. RESPIRATORY: Clear to auscultation. Breath sounds equal bilaterally. No wheezes , rales, or rhonchi. GASTROINTESTINAL: Abdomen soft, non-tender, nondistended. No hepato-splenomegaly , or palpable masses. No guarding. MUSCULOSKELETAL: Extremities without clubbing, cyanosis, or edema. No joint tenderness, effusion, or edema noted. Minimal redness to left knee. NEUROLOGICAL: Awake and alert. Motor and sensory grossly within normal limits. Five out of 5 muscle strength in all muscle groups. Normal speech. Hospital Course 76-year-old with a past medical history of hypertension and BPH who was out working on his yard gardening yesterday when he suffered an injury to his left knee after he kneeled down and a branch punctured his skin located on his knee. Puncture wound of left knee, with joint effusion Patient had x-ray done in ED which did not show any foreign body, mild effusion and chondrocalcinosis. Knee aspiration done and cultures sent all negative . Blood cultures with 03/[address] Cast ID. On IV Clindamycin and Ceftazidime. Discharged on keflex and levaquin for 5 days at DC PO antibiotic per ID specialist, appreciate recommendations. Patient received Tetanus and Diphtheria IM in ED Orthopedics consulted, cleared patient for DC Follow cultures if positive patient may need surgical irrigation and debridement. Ortho ff. Blood cultures positive. ID specialist ff. Will repeat blood cultures 01/28/17 so far NTD Consulted ID, recommendations appreciated. Pain control [place] and IV morphine for breakthrough pain as needed. Pain is controlled and patient did not require pain meds at DC. HTN, chronic Home medications resumed Monitor trends. BPH, chronic Resumed home Flomax No complaints of urinary difficulties. VTE ppx - Early ambulation Discussed with the patient, nurse, family at bedside DC plan: cleared by ortho for DC. Patient improved. Pt Condition on Discharge: Stable Discharge Disposition: Disch w/ Home Health Serv Discharge Time: > 30 minutes Discharge Instructions DIET: Follow Instructions for: Heart Healthy Diet Activities you can perform: Regular-No Restrictions Follow up Referrals: Orthopedics - 2 Weeks with Gus Velasco MD PCP Follow-up - 2-3 Days New Medications: Cephalexin (Keflex) 500 Mg Cap 500 MG PO Q6H for Infection for 5 Days, #20 CAP 0 Refills Levofloxacin (Levaquin) 750 Mg Tablet 750 MG PO DAILY for Infection for 5 Days, #5 TAB 0 Refills Continued Medications: Aspirin DR (Aspirin EC) 81 Mg Tabdr 81 MG PO DAILY, TAB 0 Refills Atenolol (Atenolol) 50 Mg Tab 50 MG PO DAILY for Blood Pressure Management, #30 TAB 0 Refills Hydrochlorothiazide (Hydrochlorothiazide) 25 Mg Tab 25 MG PO DAILY, #30 TAB 0 Refills Tamsulosin (Tamsulosin) 0.4 Mg Cap 0.4 MG PO BLAS for Manage Prostate Problems, #30 CAP 0 Refills Toña Arreola MD Jan 29, 2017 10:02
--- NOTE | 2017-01-29 10:02 | HHI.FF ---
Face to Face Verification Diagnosis: (1) Hypertension (2) Effusion of knee joint, left (3) Puncture wound of left knee (4) Septic arthritis of knee, left Physical Therapy Order: Evaluate and Treat Home Health Nursing Order: Medical education Signs/symptoms of disease process Medication education-adverse effect Nursing assessment with vital signs I have seen patient Fercho Samuels Jr Jr on 01/29/17. My clinical findings support the need for the requested home health care services because: Ltd mobility - disease progression I certify that my clinical findings support that this patient is homebound because: Post-op weakness Toña Arreola MD Jan 29, 2017 10:02
[2017-01-29 12:00] VITALS: BP 128/61; PULSE 56; RESP 16; TEMP 97.4; O2SAT 98
--- NOTE | 2017-01-29 13:12 | HHI.IDPN ---
Subjective Subjective Remarks doing good afebrile no c/o Antibiotics cegfftazidime clindamycin Allergies: Coded Allergies: lisinopril (Verified Allergy, Unknown, Anaphylaxis, 01/26/17) Objective . Vital Signs Date Time Temp Pulse Resp B/P (MAP) Pulse Ox O2 Delivery O2 Flow Rate FiO2 01/29/17 12:00 97.4 56 16 128/61 (83) 98 01/29/17 08:00 97.2 75 16 163/86 (111) 97 01/29/17 04:00 97.5 65 18 180/79 (112) 97 01/29/17 00:00 97.5 58 18 136/68 (90) 97 01/28/17 20:00 97.7 56 18 139/60 (86) 97 01/28/17 16:33 97.9 48 20 113/54 (73) 96 01/29/17 01/29/17 01/30/17 15:00 23:00 07:00 # Voids 3 . Laboratory Tests Test 01/28/17 06:13 White Blood Count 4.6 TH/MM3 Red Blood Count 3.66 MIL/MM3 Hemoglobin 12.1 GM/DL Hematocrit 34.9 % Mean Corpuscular Volume 95.3 FL Mean Corpuscular Hemoglobin 33.0 PG Mean Corpuscular Hemoglobin Concent 34.6 % Red Cell Distribution Width 12.9 % Platelet Count 131 TH/MM3 Mean Platelet Volume 9.2 FL Neutrophils (%) (Auto) 69.5 % Lymphocytes (%) (Auto) 16.6 % Monocytes (%) (Auto) 11.3 % Eosinophils (%) (Auto) 2.1 % Basophils (%) (Auto) 0.5 % Neutrophils # (Auto) 3.2 TH/MM3 Lymphocytes # (Auto) 0.8 TH/MM3 Monocytes # (Auto) 0.5 TH/MM3 Eosinophils # (Auto) 0.1 TH/MM3 Basophils # (Auto) 0.0 TH/MM3 CBC Comment DIFF FINAL Differential Comment Laboratory Tests Test 01/28/17 06:13 Blood Urea Nitrogen 14 MG/DL Creatinine 0.93 MG/DL Random Glucose 99 MG/DL Total Protein 5.7 GM/DL Albumin 2.7 GM/DL Calcium Level 8.1 MG/DL Alkaline Phosphatase 59 U/L Aspartate Amino Transf (AST/SGOT) 15 U/L Alanine Aminotransferase (ALT/SGPT) 18 U/L Total Bilirubin 1.2 MG/DL Sodium Level 135 MEQ/L Potassium Level 3.4 MEQ/L Chloride Level 100 MEQ/L Carbon Dioxide Level 27.2 MEQ/L Anion Gap 8 MEQ/L Estimat Glomerular Filtration Rate 79 ML/MIN Microbiology Date/Time Source Procedure Growth Status 01/28/17 13:00 Blood Peripheral Aerobic Blood Culture - Preliminary NO GROWTH IN 1 DAY Resulted 01/28/17 13:00 Blood Peripheral Anaerobic Blood Culture - Preliminary NO GROWTH IN 1 DAY Resulted 01/28/17 12:51 Blood Peripheral Aerobic Blood Culture - Preliminary NO GROWTH IN 1 DAY Resulted 01/28/17 12:51 Blood Peripheral Anaerobic Blood Culture - Preliminary NO GROWTH IN 1 DAY Resulted 01/26/17 20:55 Blood Peripheral Aerobic Blood Culture - Final Corynebacterium Sp Staph Sp Coagulase Negative Resulted 01/26/17 20:55 Blood Peripheral Anaerobic Blood Culture - Preliminary NO GROWTH IN 3 DAYS Resulted 01/26/17 20:55 Blood Peripheral Aerobic Blood Culture - Preliminary NO GROWTH IN 3 DAYS Resulted 01/26/17 20:55 Blood Peripheral Anaerobic Blood Culture - Preliminary NO GROWTH IN 3 DAYS Resulted 01/27/17 00:00 Fluid Synovial Fluid Gram Stain - Final Resulted 01/27/17 00:00 Fluid Synovial Fluid Body Fluid Culture - Preliminary NO GROWTH IN 48 HOURS. Resulted 01/26/17 23:00 Fluid Synovial Fluid Fungal Smear Pending Received 01/26/17 23:00 Fluid Synovial Fluid Fungal Culture Pending Received 01/26/17 23:00 Fluid Synovial Fluid Acid Fast Stain Pending Received 01/26/17 23:00 Fluid Synovial Fluid Mycobacterial Culture Pending Received Imaging Last Impressions Knee X-Ray 01/26/17 0000 Signed Impressions: Service Date/Time: January 20:38 - CONCLUSION: 1. Mild effusion. 2. Chondrocalcinosis. 3. No foreign body is seen. Suman Serrano MD Physical Exam CONSTITUTIONAL/GENERAL: This is an adequately nourished patient, in no apparent distress. TUBES/LINES/DRAINS: SKIN: No jaundice, rashes, or lesions. CARDIOVASCULAR: Regular rate and rhythm without murmurs, gallops, or rubs. RESPIRATORY/CHEST: Symmetric, unlabored respirations. Clear to auscultation. MUSCULOSKELETAL: Extremities without clubbing, cyanosis, or edema. No calf tenderness. No mottling or clubbing. Complete resolution of erythematous aera over medial aspect of the L knee notes not tender to palpation NEUROLOGICAL: Awake and alert. Non focal Assessment & Plan Remarks ? L knee infectio following puncture wound with a thorn - clinically resolved Synovial fluid suspicius for septic arthritis, cult is culture negatve @ 48 hrs Low grade polimicrobilal Gram positive bactermeia (PPR, coag neg staph) 1/ bottles - cw contamination - monitor clx, including AFB, fungal OK to dc home on levaquine + Keflex x 5 more days days fu clx untill final OK to dc Emely Ravi MD Jan 29, 2017 13:12
[2017-01-29] MEDS ORDERED: LEVA750T9 PO (13:23)
[2017-01-29] MEDS ORDERED: CEPH-460 PO (13:23)
[2017-01-31] MEDS ORDERED: CALC1TAB12 PO (10:07)
== END 2017-01-29 14:50 | disposition home or self-care (01) | DRG 605 ==
LOC: PHED 19:38 → PHEDA 01-27 00:15 → N05A 01-27 03:10
PROVIDERS: ADMIT Hospitalist; ATTEND Hospitalist
PROC: 0S9D3ZX Drainage of Left Knee Joint, Percutaneous Approach, Diagnostic (ICD-10-PCS; principal; 2017-01-26)
DX: S81.032A Puncture wound without foreign body, left knee, initial encounter (principal); I10 Essential (primary) hypertension; M25.462 Effusion, left knee; N40.0 Benign prostatic hyperplasia without lower urinary tract symptoms; E87.6 Hypokalemia; M11.262 Other chondrocalcinosis, left knee; W60.XXXA Contact with nonvenomous plant thorns and spines and sharp leaves, initial encounter; Y93.H2 Activity, gardening and landscaping; Y92.007 Garden or yard of unspecified non-institutional (private) residence as the place of occurrence of the external cause; Z85.118 Personal history of other malignant neoplasm of bronchus and lung; Z87.891 Personal history of nicotine dependence; Z90.2 Acquired absence of lung [part of]
CPT/HCPCS: 10120; 73564; 80048; 80053; 82945; 83605; 84157; 85025; 85610; 85652; 85730; 86403; 87015; 87040; 87070; 87102; 87116; 87205; 87206; 89051; 89060; 90471; 90714; 93005; 96374; 96375; J0713; J1885; J2270; J2405; J7030